=== PATIENT | female | born 1945 | race Caucasian/White ===

== ENCOUNTER 2020-07-25 08:21 | Outpatient (NON) | payer OTHER, SELFPAY ==
[2020-07-25 23:55] LABS: SARS-CoV-2 RNA PCR Positive
== END 2020-07-25 08:22 ==
LOC: ANHCOVIDDT 08:22
PROVIDERS: PCP Emergency Medicine; Visit Provider Emergency Medicine
DX: U07.1 COVID-19 (principal)
CPT/HCPCS: 87635; C9803; U0003